=== PATIENT | female | born 1945 | race Hispanic/Latino ===

== ENCOUNTER 2021-04-03 14:18 | Inpatient (IN) | payer BC, MEDICARE ==
[~2021-04-03] VITALS: Ht 162.6 cm; Wt 108.9 kg
[2021-04-03] MEDS ORDERED: SODIUM CHLORIDE 0.9% 1000ML 1,000 ML IV STA (14:53)
[2021-04-03] MEDS ORDERED: ACETAMINOPHEN 325 MG TAB PO PRN (15:00)
[2021-04-03] MEDS ORDERED: ONDANSETRON HCL INJ 2MG/ML 2ML 2 MG/ML VIAL IV PRN ×2 (15:00)
[2021-04-03] MEDS ORDERED: PIPERACILLIN/TAZOBACTAM 3.375 GM VIAL ONE (15:10)
[2021-04-03] MEDS ORDERED: Vancomycin IV 1 GM VIAL ONE (15:10)
[2021-04-03] MEDS ORDERED: SODIUM CHLORIDE 0.9% 100 ML ONE (15:10)
[2021-04-03] MEDS ORDERED: SODIUM CHLORIDE 0.9% 250ML 250 ML ONE (15:10)
[2021-04-03] MEDS ORDERED: DEXTROSE 50% SYRINGE 50 ML IV PRN (15:15)
[2021-04-03] MEDS: PIPERACILLIN/TAZOBACTAM 3.375 GM in SODIUM CHLORIDE 0.9% 50ML 50 ML IV SCH (15:15)
[2021-04-03] MEDS: Vancomycin IV 1 GM in SODIUM CHLORIDE 0.9% 250ML 250 ML IV SCH (15:50)
[2021-04-03] MEDS: TRAMADOL HCL 50 MG TAB PO PRN (15:57)
[2021-04-03] MEDS ORDERED: TRAMADOL HCL 50 MG TAB ONE (15:58)
[2021-04-03 16:32] VITALS: BP 141/61
[2021-04-03] MEDS ORDERED: ALLOPURINOL100 MG PO (17:07)
[2021-04-03] MEDS ORDERED: FUROSEMIDE40 MG PO (17:07)
[2021-04-03] MEDS ORDERED: DULOXETINE HCL60 MG PO (17:07)
[2021-04-03] MEDS ORDERED: VITAMIN d PO (17:07)
[2021-04-03] MEDS ORDERED: AMLODIPINE BESY10 MG PO (17:07)
[2021-04-03] MEDS ORDERED: ZEBETA10 MG PO (17:07)
[2021-04-03] MEDS ORDERED: PREGABALIN100 MG PO (17:07)
[2021-04-03] MEDS ORDERED: FOLIC ACID PO (17:07)
[2021-04-03] MEDS ORDERED: AMLODIPINE BESYL5 MG PO (17:07)
[2021-04-03] MEDS ORDERED: JANUVIA25 MG PO (17:07)
[2021-04-03] MEDS ORDERED: LISINOPRIL40 MG PO (17:07)
[2021-04-03] MEDS ORDERED: PANTOPRAZOLE SO20 MG PO (17:07)
[2021-04-03] MEDS ORDERED: ATORVASTATIN CA10 MG PO (17:07)
[2021-04-03 17:11] VITALS: BP 141/61
[2021-04-03 17:16] VITALS: BP 141/61
[2021-04-03] MEDS: FAMOTIDINE 20 MG TAB PO SCH (17:28)
[2021-04-03] MEDS: INSULIN REGULAR, HUMAN 100 UNIT/1 ML SQ SCH ×2 (17:36→21:00)
[2021-04-03 21:00] VITALS: BP 133/53
[2021-04-03] MEDS ORDERED: ZOLPIDEM TARTRATE 5 MG TAB PO PRN (21:00)
[2021-04-03 21:16] VITALS: BP 133/53
[2021-04-04] VITALS (8 sets, daily range): BP systolic 131–156; BP diastolic 50–64
[2021-04-04] MEDS ORDERED: LIDOCAINE 4% PATCH TP PRN (00:30)
[2021-04-04] MEDS ORDERED: DOCUSATE SODIUM 100 MG CAP PO PRN (00:30)
[2021-04-04] MEDS ORDERED: ALBUTEROL/IPRATROPIUM 3 ML NEB NEB PRN (00:30)
[2021-04-04] MEDS ORDERED: DEXTROSE 50% SYRINGE 50 ML IV PRN ×2 (00:30→11:30)
[2021-04-04] MEDS ORDERED: POTASSIUM CHLORIDE 20 MEQ TAB CR PO PRN (00:30)
[2021-04-04] MEDS ORDERED: BENZONATATE 100 MG CAP PO PRN (00:30)
[2021-04-04] MEDS ORDERED: HYDRALAZINE HCL 20 MG/ML VIAL IV PRN (00:30)
[2021-04-04] MEDS ORDERED: ONDANSETRON HCL INJ 2MG/ML 2ML 2 MG/ML VIAL IV PRN (00:30)
[2021-04-04] MEDS ORDERED: SIMETHICONE 80 MG CHEW PO PRN (00:30)
[2021-04-04] MEDS ORDERED: MELATONIN 5 MG TABLET PO PRN (00:30)
[2021-04-04] MEDS: Vancomycin IV 1 GM in SODIUM CHLORIDE 0.9% 250ML 250 ML IV SCH (04:10)
[2021-04-04] MEDS: PIPERACILLIN/TAZOBACTAM 3.375 GM in SODIUM CHLORIDE 0.9% 50ML 50 ML IV SCH ×3 (05:19)
[2021-04-04 07:30] LABS: BASOPHILS % 0.5 % (0.0-1.0); EOSINOPHILS % 0.1 % (0.0-6.0); HEMATOCRIT 26.6 % (34.2-44.1); HEMOGLOBIN 8.1 g/dL (12.0-16.0); LYMPHOCYTES # (AUTO) 1.6 (1.0-3.2); LYMPHOCYTES % 20.6 % (18.0-39.1); MEAN CORPUSCULAR HEMOGLOBIN 30.9 pg (28-32); MEAN CORPUSCULAR HGB CONC 30.5 g/dL (31-35); MEAN CORPUSCULAR VOLUME 101.5 fL (81-99); MONOCYTES # (AUTO) 0.5 (0.2-0.8); MONOCYTES % 5.9 % (4.4-11.3); NEUTROPHILS # (AUTO) 5.3 (2.1-6.9); NEUTROPHILS % 69.1 % (38.7-80.0); PLATELET COUNT 163 x10e3/uL (140-360); RED BLOOD COUNT 2.62 x10e6/uL (3.6-5.1); RED CELL DISTRIBUTION WIDTH 15.9 % (11.7-14.4)
[2021-04-04] MEDS: INSULIN REGULAR, HUMAN 100 UNIT/1 ML SQ SCH ×2 (07:30→11:30)
[2021-04-04] MEDS: FAMOTIDINE 20 MG TAB PO SCH (07:30)
[2021-04-04 08:22] LABS: ANION GAP 15.2 mmol/L (8-16); CALCIUM 8.6 mg/dL (8.4-10.2); CREATININE, SERUM 3.99 mg/dL (0.57-1.11); POTASSIUM 4.2 mmol/L (3.5-5.1)
[2021-04-04 08:23] LABS: CHOL/HDL RATIO 3.1 (3.0-3.6); MAGNESIUM 1.6 MG/DL (1.3-2.1)
[2021-04-04 08:44] LABS: THYROID STIMULATING HORMONE 1.155 uIU/mL (0.350-4.940)
[2021-04-04] MEDS: TRAMADOL HCL 50 MG TAB PO PRN (10:48)
[2021-04-04] MEDS: INSULIN LISPRO 100 UNIT/1 ML 3ML VIAL SQ SCH ×3 (11:30→21:30)
[2021-04-04] MEDS ORDERED: FUROSEMIDE 40 MG TAB PO SCH (11:30)
[2021-04-04] MEDS: DULOXETINE HCL 30 MG DELAYED RELEASE PO SCH (12:00)
[2021-04-04 12:29] LABS: INR 1.03; PROTHROMBIN TIME 14.3 seconds (11.9-14.5)
[2021-04-04] MEDS ORDERED: SODIUM CHLORIDE 0.9% 1000ML 1,000 ML IV SCH (12:30)
[2021-04-04] MEDS: FOLIC ACID 1 MG TAB PO SCH (13:00)
[2021-04-04] MEDS ORDERED: LISINOPRIL 20 MG TAB PO SCH (13:00)
[2021-04-04] MEDS: SODIUM BICARBONATE 650 MG TAB PO SCH (16:13)
[2021-04-04] MEDS ORDERED: CEFTRIAXONE 1 GM in SODIUM CHLORIDE 0.9% 50ML 50 ML IV SCH (17:00)
[2021-04-04] MEDS ORDERED: ENOXAPARIN 30 MG/0.3 ML SYR SC SCH (17:00)
[2021-04-04] MEDS ORDERED: ENOXAPARIN SOD INJ 40 MG/0.4 ML SYR SC SCH (17:00)
[2021-04-04] MEDS ORDERED: PREGABALIN 50 MG CAP PO SCH (17:00)
[2021-04-04] MEDS ORDERED: SODIUM BICARBONATE 8.4% IV ONE (18:00)
[2021-04-04] MEDS ORDERED: DEXTROSE 5% IV ONE (18:00)
[2021-04-04] MEDS: AMLODIPINE BESYLATE 10 MG TAB PO SCH (21:30)
[2021-04-04] MEDS: ATORVASTATIN 10 MG TAB PO SCH (21:30)
[2021-04-04] MEDS ORDERED: SODIUM CHLORIDE 0.9% 250ML 250 ML ONE (21:37)
[2021-04-04] MEDS: Clindamycin INJ 900 MG 900 MG in SODIUM CHLORIDE 0.9% 50ML 50 ML IV SCH (22:10)
[2021-04-05] VITALS (7 sets, daily range): BP systolic 126–162; BP diastolic 54–79
[2021-04-05] MEDS: TRAMADOL HCL 50 MG TAB PO PRN ×2 (05:39→14:09)
[2021-04-05] MEDS: Clindamycin INJ 900 MG 900 MG in SODIUM CHLORIDE 0.9% 50ML 50 ML IV SCH ×3 (06:02→22:00)
[2021-04-05 06:56] LABS: BASOPHILS % 0.5 % (0.0-1.0); EOSINOPHILS % 0.1 % (0.0-6.0); HEMATOCRIT 28.6 % (34.2-44.1); HEMOGLOBIN 8.3 g/dL (12.0-16.0); LYMPHOCYTES # (AUTO) 1.3 (1.0-3.2); LYMPHOCYTES % 17.5 % (18.0-39.1); MEAN CORPUSCULAR VOLUME 103.2 fL (81-99); MONOCYTES # (AUTO) 0.5 (0.2-0.8); MONOCYTES % 6.3 % (4.4-11.3); NEUTROPHILS # (AUTO) 5.5 (2.1-6.9); PLATELET COUNT 142 x10e3/uL (140-360); RED BLOOD COUNT 2.77 x10e6/uL (3.6-5.1)
[2021-04-05 07:19] LABS: ANION GAP 16.1 mmol/L (8-16); CALCIUM 8.4 mg/dL (8.4-10.2); CREATININE, SERUM 3.63 mg/dL (0.57-1.11); POTASSIUM 4.1 mmol/L (3.5-5.1)
[2021-04-05] MEDS: INSULIN LISPRO 100 UNIT/1 ML 3ML VIAL SQ SCH ×4 (07:30→21:00)
[2021-04-05] MEDS ORDERED: SODIUM CHLORIDE 0.9% 250ML 250 ML ONE (08:58)
[2021-04-05] MEDS ORDERED: LIDOCAINE HCL 1% LOCAL INJ 20 ML VIAL ONE (08:58)
[2021-04-05] MEDS ORDERED: NON-FORMULARY MEDICATION (Sitagliptin Phosphate* (Januvia*) 25 MG) PO SCH (09:00)
[2021-04-05] MEDS ORDERED: FENTANYL CITRATE/PF 100MCG/2 ML INJ ONE (09:21)
[2021-04-05] MEDS ORDERED: MIDAZOLAM HCL 2 MG/2 ML VIAL ONE (09:21)
[2021-04-05 10:21] LABS: PLATELET ESTIMATE SLIGHTLY DECREASED; PLATELET MORPHOLOGY COMMENT NORMAL; RBC MORPHOLOGY COMMENT NORMAL
[2021-04-05] MEDS: FOLIC ACID 1 MG TAB PO SCH (10:57)
[2021-04-05] MEDS: PANTOPRAZOLE SOD 40 MG TABEC PO SCH (10:57)
[2021-04-05] MEDS: BISOPROLOL FUMARATE 10 MG TAB PO SCH (10:57)
[2021-04-05] MEDS: DULOXETINE HCL 30 MG DELAYED RELEASE PO SCH (10:57)
[2021-04-05] MEDS: ALLOPURINOL 100 MG TAB PO SCH (10:57)
[2021-04-05] MEDS: SODIUM BICARBONATE 650 MG TAB PO SCH ×2 (10:57→17:21)
[2021-04-05] MEDS: FUROSEMIDE INJ 10 MG/ML 4 ML VIAL IV SCH ×2 (11:29→21:00)
[2021-04-05] MEDS: ATORVASTATIN 10 MG TAB PO SCH (21:00)
[2021-04-05] MEDS: AMLODIPINE BESYLATE 10 MG TAB PO SCH (21:00)
[2021-04-06] VITALS (8 sets, daily range): BP systolic 134–149; BP diastolic 54–66
[2021-04-06 05:05] LABS: BASOPHILS % 0.6 % (0.0-1.0); EOSINOPHILS % 0.3 % (0.0-6.0); HEMATOCRIT 26.9 % (34.2-44.1); HEMOGLOBIN 8.1 g/dL (12.0-16.0); LYMPHOCYTES # (AUTO) 1.3 (1.0-3.2); LYMPHOCYTES % 18.9 % (18.0-39.1); MEAN CORPUSCULAR HEMOGLOBIN 30.7 pg (28-32); MEAN CORPUSCULAR HGB CONC 30.1 g/dL (31-35); MEAN CORPUSCULAR VOLUME 101.9 fL (81-99); MONOCYTES # (AUTO) 0.5 (0.2-0.8); MONOCYTES % 7.2 % (4.4-11.3); NEUTROPHILS # (AUTO) 4.8 (2.1-6.9); NEUTROPHILS % 69.1 % (38.7-80.0); PLATELET COUNT 145 x10e3/uL (140-360); RED BLOOD COUNT 2.64 x10e6/uL (3.6-5.1); RED CELL DISTRIBUTION WIDTH 15.8 % (11.7-14.4)
[2021-04-06] MEDS: Clindamycin INJ 900 MG 900 MG in SODIUM CHLORIDE 0.9% 50ML 50 ML IV SCH ×3 (05:20→22:33)
[2021-04-06 05:41] LABS: ANION GAP 15.7 mmol/L (8-16); CALCIUM 8.7 mg/dL (8.4-10.2); CREATININE, SERUM 3.89 mg/dL (0.57-1.11); POTASSIUM 3.7 mmol/L (3.5-5.1)
[2021-04-06] MEDS ORDERED: LOPERAMIDE HCL 2 MG/15 ML UDC PO PRN (07:30)
[2021-04-06] MEDS: INSULIN LISPRO 100 UNIT/1 ML 3ML VIAL SQ SCH ×4 (07:30→21:00)
[2021-04-06] MEDS: TRAMADOL HCL 50 MG TAB PO PRN (10:00)
[2021-04-06] MEDS: PANTOPRAZOLE SOD 40 MG TABEC PO SCH (10:03)
[2021-04-06] MEDS: DULOXETINE HCL 30 MG DELAYED RELEASE PO SCH (10:04)
[2021-04-06] MEDS: SODIUM BICARBONATE 650 MG TAB PO SCH ×3 (10:04→21:29)
[2021-04-06] MEDS: FOLIC ACID 1 MG TAB PO SCH (10:04)
[2021-04-06] MEDS: FUROSEMIDE INJ 10 MG/ML 4 ML VIAL IV SCH (10:04)
[2021-04-06] MEDS: ALLOPURINOL 100 MG TAB PO SCH (10:05)
[2021-04-06] MEDS: BISOPROLOL FUMARATE 10 MG TAB PO SCH (10:05)
[2021-04-06] MEDS ORDERED: FUROSEMIDE INJ 10 MG/ML 4 ML VIAL IV ONE (11:30)
[2021-04-06] MEDS: FUROSEMIDE INJ 100 MG in SODIUM CHLORIDE 0.9% 100 ML 90 ML IV SCH (12:58)
[2021-04-06] MEDS: OYST-CAL-D 500MG TABLET PO SCH (16:16)
[2021-04-06] MEDS: AMLODIPINE BESYLATE 10 MG TAB PO SCH (21:00)
[2021-04-06] MEDS: ATORVASTATIN 10 MG TAB PO SCH (21:29)
[2021-04-06] MEDS: DIPHENHYDRAMINE HCL INJ 50 MG/ML VIAL IV PRN (21:31)
[2021-04-07] VITALS (7 sets, daily range): BP systolic 112–160; BP diastolic 55–74
[2021-04-07] MEDS: FUROSEMIDE INJ 100 MG in SODIUM CHLORIDE 0.9% 100 ML 90 ML IV SCH ×3 (01:28→16:50)
[2021-04-07 05:00] LABS: CALCIUM IONIZED 1.1 mmol/L (1.09-1.30)
[2021-04-07 05:17] LABS: ANION GAP 19.3 mmol/L (8-16); CALCIUM 8.9 mg/dL (8.4-10.2); CREATININE, SERUM 4.06 mg/dL (0.57-1.11); MAGNESIUM 1.5 MG/DL (1.3-2.1); PHOSPHORUS 5.7 MG/DL (2.3-4.7); POTASSIUM 3.3 mmol/L (3.5-5.1)
[2021-04-07] MEDS: Clindamycin INJ 900 MG 900 MG in SODIUM CHLORIDE 0.9% 50ML 50 ML IV SCH ×3 (05:24→21:47)
[2021-04-07] MEDS: INSULIN LISPRO 100 UNIT/1 ML 3ML VIAL SQ SCH ×4 (07:30→21:00)
[2021-04-07] MEDS: PANTOPRAZOLE SOD 40 MG TABEC PO SCH (08:03)
[2021-04-07] MEDS: OYST-CAL-D 500MG TABLET PO SCH ×2 (08:03→12:12)
[2021-04-07] MEDS: FOLIC ACID 1 MG TAB PO SCH (08:13)
[2021-04-07] MEDS: SODIUM BICARBONATE 650 MG TAB PO SCH ×3 (08:13→21:47)
[2021-04-07] MEDS: DULOXETINE HCL 30 MG DELAYED RELEASE PO SCH (08:13)
[2021-04-07] MEDS: BISOPROLOL FUMARATE 10 MG TAB PO SCH (08:13)
[2021-04-07] MEDS: ALLOPURINOL 100 MG TAB PO SCH (08:13)
[2021-04-07] MEDS ORDERED: POTASSIUM CHLORIDE 10MEQ EA PO NR (15:45)
[2021-04-07] MEDS: CALCIUM CARBONATE 500 MG CHEWABLE TABS PO SCH ×2 (16:48→21:47)
[2021-04-07] MEDS: SEVELAMER CARBONATE 800 MG TAB PO SCH (16:49)
[2021-04-07] MEDS: ATORVASTATIN 10 MG TAB PO SCH (21:46)
[2021-04-07] MEDS: AMLODIPINE BESYLATE 10 MG TAB PO SCH (21:47)
[2021-04-08] VITALS (10 sets, daily range): BP systolic 122–157; BP diastolic 50–88
[2021-04-08] MEDS: Clindamycin INJ 900 MG 900 MG in SODIUM CHLORIDE 0.9% 50ML 50 ML IV SCH ×3 (05:22→21:30)
[2021-04-08] MEDS: FUROSEMIDE INJ 100 MG in SODIUM CHLORIDE 0.9% 100 ML 90 ML IV SCH (05:22)
[2021-04-08] MEDS: PANTOPRAZOLE SOD 40 MG TABEC PO SCH (06:42)
[2021-04-08] MEDS: CALCIUM CARBONATE 500 MG CHEWABLE TABS PO SCH ×4 (07:15→21:21)
[2021-04-08] MEDS: INSULIN LISPRO 100 UNIT/1 ML 3ML VIAL SQ SCH ×4 (07:30→22:14)
[2021-04-08] MEDS: SEVELAMER CARBONATE 800 MG TAB PO SCH ×4 (08:00→17:00)
[2021-04-08 08:52] LABS: BASOPHILS % 0.4 % (0.0-1.0); EOSINOPHILS # (AUTO) 0.1 (0.0-0.4); EOSINOPHILS % 0.6 % (0.0-6.0); HEMATOCRIT 30.9 % (34.2-44.1); HEMOGLOBIN 9.3 g/dL (12.0-16.0); LYMPHOCYTES # (AUTO) 1.5 (1.0-3.2); LYMPHOCYTES % 14.6 % (18.0-39.1); MEAN CORPUSCULAR HEMOGLOBIN 29.7 pg (28-32); MEAN CORPUSCULAR HGB CONC 30.1 g/dL (31-35); MEAN CORPUSCULAR VOLUME 98.7 fL (81-99); MONOCYTES # (AUTO) 0.7 (0.2-0.8); MONOCYTES % 6.6 % (4.4-11.3); NEUTROPHILS % 75.8 % (38.7-80.0); PLATELET COUNT 191 x10e3/uL (140-360); RED BLOOD COUNT 3.13 x10e6/uL (3.6-5.1); RED CELL DISTRIBUTION WIDTH 15.3 % (11.7-14.4)
[2021-04-08] MEDS ORDERED: CHOLECALCIFEROL 1,000 UNIT TAB PO SCH (09:00)
[2021-04-08 09:25] LABS: ANION GAP 19.5 mmol/L (8-16); CALCIUM 9.1 mg/dL (8.4-10.2); CREATININE, SERUM 4.59 mg/dL (0.57-1.11); MAGNESIUM 1.4 MG/DL (1.3-2.1); POTASSIUM 3.5 mmol/L (3.5-5.1)
[2021-04-08] MEDS: SODIUM BICARBONATE 650 MG TAB PO SCH (09:41)
[2021-04-08] MEDS: BISOPROLOL FUMARATE 10 MG TAB PO SCH (09:41)
[2021-04-08] MEDS: DULOXETINE HCL 30 MG DELAYED RELEASE PO SCH (09:41)
[2021-04-08] MEDS: FOLIC ACID 1 MG TAB PO SCH (09:41)
[2021-04-08] MEDS: ALLOPURINOL 100 MG TAB PO SCH (09:42)
[2021-04-08] MEDS: ATORVASTATIN 10 MG TAB PO SCH (21:21)
[2021-04-08] MEDS: AMLODIPINE BESYLATE 10 MG TAB PO SCH (21:22)
[2021-04-08] MEDS: SODIUM CHLORIDE FLUSH 10 ML SYR INJ PRN (22:21)
[2021-04-09] VITALS (10 sets, daily range): BP systolic 105–145; BP diastolic 49–68
[2021-04-09] MEDS: DIPHENHYDRAMINE HCL INJ 50 MG/ML VIAL IV PRN ×2 (01:18→21:09)
[2021-04-09 05:25] LABS: BASOPHILS % 0.3 % (0.0-1.0); EOSINOPHILS # (AUTO) 0.1 (0.0-0.4); EOSINOPHILS % 0.8 % (0.0-6.0); HEMATOCRIT 29.7 % (34.2-44.1); HEMOGLOBIN 9.1 g/dL (12.0-16.0); LYMPHOCYTES # (AUTO) 1.3 (1.0-3.2); LYMPHOCYTES % 14.8 % (18.0-39.1); MEAN CORPUSCULAR HEMOGLOBIN 30.5 pg (28-32); MEAN CORPUSCULAR HGB CONC 30.6 g/dL (31-35); MEAN CORPUSCULAR VOLUME 99.7 fL (81-99); MONOCYTES # (AUTO) 0.6 (0.2-0.8); MONOCYTES % 6.9 % (4.4-11.3); NEUTROPHILS # (AUTO) 6.6 (2.1-6.9); NEUTROPHILS % 74.6 % (38.7-80.0); PLATELET COUNT 162 x10e3/uL (140-360); RED BLOOD COUNT 2.98 x10e6/uL (3.6-5.1); RED CELL DISTRIBUTION WIDTH 15.1 % (11.7-14.4)
[2021-04-09 05:49] LABS: CALCIUM 8.4 mg/dL (8.4-10.2); CREATININE, SERUM 4.79 mg/dL (0.57-1.11)
[2021-04-09] MEDS: Clindamycin INJ 900 MG 900 MG in SODIUM CHLORIDE 0.9% 50ML 50 ML IV SCH ×3 (06:03→21:10)
[2021-04-09] MEDS: PANTOPRAZOLE SOD 40 MG TABEC PO SCH (06:40)
[2021-04-09] MEDS: CALCIUM CARBONATE 500 MG CHEWABLE TABS PO SCH ×4 (06:40→21:02)
[2021-04-09] MEDS: INSULIN LISPRO 100 UNIT/1 ML 3ML VIAL SQ SCH ×4 (07:30→21:15)
[2021-04-09] MEDS: SEVELAMER CARBONATE 800 MG TAB PO SCH ×3 (08:00→16:27)
[2021-04-09] MEDS: BISOPROLOL FUMARATE 10 MG TAB PO SCH (09:00)
[2021-04-09] MEDS: ALLOPURINOL 100 MG TAB PO SCH (09:00)
[2021-04-09] MEDS: FOLIC ACID 1 MG TAB PO SCH (09:00)
[2021-04-09] MEDS: DULOXETINE HCL 30 MG DELAYED RELEASE PO SCH (09:00)
[2021-04-09] MEDS ORDERED: ONDANSETRON HCL 4 MG ORAL DISINTEGRATING TAB PO PRN (10:30)
[2021-04-09] MEDS: TRAMADOL HCL 50 MG TAB PO PRN (18:42)
[2021-04-09] MEDS: AMLODIPINE BESYLATE 10 MG TAB PO SCH (21:02)
[2021-04-09] MEDS: ATORVASTATIN 10 MG TAB PO SCH (21:02)
[2021-04-09] MEDS: SODIUM CHLORIDE FLUSH 10 ML SYR INJ PRN (21:03)
[2021-04-10] VITALS (8 sets, daily range): BP systolic 94–145; BP diastolic 46–72
[2021-04-10] MEDS: DIPHENHYDRAMINE HCL INJ 50 MG/ML VIAL IV PRN ×2 (03:28→16:38)
[2021-04-10] MEDS: SODIUM CHLORIDE FLUSH 10 ML SYR INJ PRN (06:31)
[2021-04-10] MEDS: Clindamycin INJ 900 MG 900 MG in SODIUM CHLORIDE 0.9% 50ML 50 ML IV SCH ×3 (06:31→22:15)
[2021-04-10 06:40] LABS: ANION GAP 14.3 mmol/L (8-16); CALCIUM 8.2 mg/dL (8.4-10.2); CREATININE, SERUM 5.01 mg/dL (0.57-1.11); POTASSIUM 3.3 mmol/L (3.5-5.1)
[2021-04-10] MEDS: CALCIUM CARBONATE 500 MG CHEWABLE TABS PO SCH ×4 (07:35→22:00)
[2021-04-10] MEDS: PANTOPRAZOLE SOD 40 MG TABEC PO SCH (07:35)
[2021-04-10 07:44] LABS: PHOSPHORUS 4.9 MG/DL (2.3-4.7)
[2021-04-10 08:31] LABS: CALCIUM IONIZED 1.1 mmol/L (1.09-1.30)
[2021-04-10] MEDS: DULOXETINE HCL 30 MG DELAYED RELEASE PO SCH (08:42)
[2021-04-10] MEDS: FOLIC ACID 1 MG TAB PO SCH (08:42)
[2021-04-10] MEDS: SEVELAMER CARBONATE 800 MG TAB PO SCH ×3 (08:43→17:00)
[2021-04-10] MEDS: BISOPROLOL FUMARATE 10 MG TAB PO SCH (08:43)
[2021-04-10] MEDS: ALLOPURINOL 100 MG TAB PO SCH (08:43)
[2021-04-10] MEDS: INSULIN LISPRO 100 UNIT/1 ML 3ML VIAL SQ SCH ×4 (08:44→21:00)
[2021-04-10] MEDS ORDERED: SODIUM CHLORIDE 0.9% 1000ML 1,000 ML IV ONE (09:30)
[2021-04-10 19:05] LABS: ALBUMIN 2.9 g/dL (3.5-5.0); ANION GAP 17.4 mmol/L (8-16); CALCIUM 8.5 mg/dL (8.4-10.2); CREATININE, SERUM 5.03 mg/dL (0.57-1.11); POTASSIUM 3.4 mmol/L (3.5-5.1)
[2021-04-10] MEDS: AMLODIPINE BESYLATE 10 MG TAB PO SCH (22:00)
[2021-04-10] MEDS: ATORVASTATIN 10 MG TAB PO SCH (22:00)
[2021-04-10] MEDS: HEPARIN SOD (PORCINE) 5,000 UNIT/ML VIAL SC SCH (22:00)
[2021-04-11] VITALS (7 sets, daily range): BP systolic 126–143; BP diastolic 53–63
[2021-04-11] MEDS: DIPHENHYDRAMINE HCL INJ 50 MG/ML VIAL IV PRN (01:18)
[2021-04-11 05:13] LABS: CALCIUM 8.2 mg/dL (8.4-10.2); CREATININE, SERUM 4.6 mg/dL (0.57-1.11)
[2021-04-11] MEDS ORDERED: SODIUM CHLORIDE 0.9% 250ML 250 ML ONE (05:35)
[2021-04-11] MEDS: Clindamycin INJ 900 MG 900 MG in SODIUM CHLORIDE 0.9% 50ML 50 ML IV SCH (05:36)
[2021-04-11] MEDS: INSULIN LISPRO 100 UNIT/1 ML 3ML VIAL SQ SCH ×3 (07:30→16:27)
[2021-04-11] MEDS: HEPARIN SOD (PORCINE) 5,000 UNIT/ML VIAL SC SCH (09:00)
[2021-04-11] MEDS: CALCIUM CARBONATE 500 MG CHEWABLE TABS PO SCH ×3 (09:43→17:29)
[2021-04-11] MEDS: SEVELAMER CARBONATE 800 MG TAB PO SCH ×3 (09:44→17:29)
[2021-04-11] MEDS: DULOXETINE HCL 30 MG DELAYED RELEASE PO SCH (09:44)
[2021-04-11] MEDS: FOLIC ACID 1 MG TAB PO SCH (09:44)
[2021-04-11] MEDS: BISOPROLOL FUMARATE 10 MG TAB PO SCH (09:45)
[2021-04-11] MEDS: ALLOPURINOL 100 MG TAB PO SCH (09:45)
[2021-04-11] MEDS: PANTOPRAZOLE SOD 40 MG TABEC PO SCH (09:46)
[2021-04-11] MEDS ORDERED: CLINDAMYCIN PHOS 900MG/ 50ML 50 ML IV SCH (14:00)
[2021-04-11] MEDS ORDERED: DIPHENHYDRAMINE HCL 25 MG CAP PO ONE (17:40)
== END 2021-04-11 18:42 | disposition home or self-care (01) | DRG 580 ==
LOC: FSED 14:42 → ERHOLD 14:52 → MED/SURG2 16:22
PROVIDERS: ADMIT Internal Medicine; ATTEND Internal Medicine
PROC: 0JH63XZ Insertion of Tunneled Vascular Access Device into Chest Subcutaneous Tissue and Fascia, Percutaneous Approach (ICD-10-PCS; principal; 2021-04-05)
PROC: 02HV33Z Insertion of Infusion Device into Superior Vena Cava, Percutaneous Approach (ICD-10-PCS; 2021-04-05)
DX: L03.116 Cellulitis of left lower limb (principal); N17.9 Acute kidney failure, unspecified; I13.11 Hypertensive heart and chronic kidney disease without heart failure, with stage 5 chronic kidney disease, or end stage renal disease; N18.5 Chronic kidney disease, stage 5; Z68.41 Body mass index [BMI] 40.0-44.9, adult; E87.2 Acidosis; L03.115 Cellulitis of right lower limb; Z20.822 Contact with and (suspected) exposure to COVID-19; E11.42 Type 2 diabetes mellitus with diabetic polyneuropathy; Z79.899 Other long term (current) drug therapy; E11.22 Type 2 diabetes mellitus with diabetic chronic kidney disease; E87.70 Fluid overload, unspecified; E66.01 Morbid (severe) obesity due to excess calories; E83.51 Hypocalcemia; I87.2 Venous insufficiency (chronic) (peripheral); E11.65 Type 2 diabetes mellitus with hyperglycemia
CPT/HCPCS: 36415; 36558; 36589; 71045; 74470; 76937; 77001; 80048; 80053; 80061; 80202; 82948; 83036; 83735; 84100; 84443; 85025; 85610; 87040; 93970; 94799; 96361; 96365; 96366; 96372; 99284; J0696; J1200; J1644; J1650; J1817; J1940; J2001; J2250; J2543; J3010; J3370; J7030; J7050; J7070; U0002